=== PATIENT | female | born 1990 | race Caucasian/White ===

== ENCOUNTER 2017-08-31 21:50 | Outpatient (CLI) | payer OTHER ==
--- NOTE | 2017-08-31 23:18 | Ultrasound Preliminary Report ---
Exam: US ABDOMEN LIMITED IMPRESSION: No abnormalities are seen. See above. [facility] SITE ID: [id number]
--- NOTE | 2017-08-31 23:18 | Ultrasound Report ---
EXAM: ABDOMEN ULTRASOUND LIMITED EXAM DATE: 08/31/2017 10:15 PM. CLINICAL HISTORY: Left UPPER QUADRANT PAIN. COMPARISON: None. TECHNIQUE: Real-time scanning was performed with static images obtained. FINDINGS: The spleen measures 9.2 x 3.8 x 8.3 cm, within normal limits. No hydronephrosis seen in the left kidney. The left kidney measures 10.4 cm in length. No fluid collection or mass seen in the lef t upper quadrant abdominal wall in the area of pain. Pancreatic duct is seen measuring 2.1 mm, within normal limits. IMPRESSION: No abnormalities are seen. See above. [facility] Referring Provider Line: [phone] SITE ID: [id number]
== END 2017-08-31 21:51 | disposition home or self-care (01) ==
LOC: DI 21:50
PROVIDERS: ATTEND Specialist
DX: R10.12 Left upper quadrant pain (principal)
CPT/HCPCS: 76705

== ENCOUNTER 2017-11-15 16:08 | Emergency (ER) | payer OTHER ==
--- NOTE | 2017-11-15 18:07 | ED Physician Documentation ---
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 No injury.) Timing - duration: Hours (2) Timing - details: Abrupt onset, Still present Associated symptoms: Other (some mild headache). No: Shortness of air, Diaphoresis, Feeling faint / dizzy Similar symptoms before: Has not had sx before Recently seen: Not recently seen Review of Systems Constitutional: denies: Fever, Chills Nose: denies: Rhinorrhea / runny nose, Congestion Throat: denies: Sore throat Cardiac: denies: Palpitations, Pedal edema, Calf pain Respiratory: reports: Cough (mild). denies: Dyspnea GI: denies: Abdominal Pain, Nausea, Vomiting, Diarrhea Musculoskeletal: denies: Neck pain, Back pain Neurologic: reports: Generalized weakness, Headache (mild, since chest pain started). 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 : None HEENT: None Psych: None Musculoskeletal: None Derm: None - Past Surgical History Past Surgical History: No - Present Medications Home Medications: Ambulatory Orders Medication Instructions Recorded Confirmed Naproxen 375 mg PO BID #20 tablet 11/15/17 - Allergies Allergies/Adverse Reactions: Allergies Allergy/AdvReac Type Severity Reaction Status Date / Time No Known Drug Allergies Allergy Verified 11/15/17 16:19 - Social History Does the pt smoke?: No Smoking Status: Never smoker Does the pt drink ETOH?: Yes Does the pt have substance abuse?: No - Family History Family history: denies: CAD, Aortic aneursym, Aortic dissection - Immunizations Immunizations are current?: Yes - POLST Patient has POLST: No PD ED PE NORMAL - Vitals Vital signs reviewed: Yes - General General: Alert and oriented X 3, Well developed/nourished, Other (somewhat uncomfortable with movement of torso. Somewhat sad and tearful, anxious.) - HEENT HEENT: Pharynx benign - Neck Neck: Supple, no meningeal sign, No adenopathy, No bruit - Cardiac Cardiac: RRR, No murmur - Respiratory Respiratory: Clear bilaterally, Other (mild tenderness left anterior chestwall. No redness nor rash. Does not fully reporduce the pain though. ) - Abdomen Abdomen: Soft, Non tender - Derm Derm: Normal color, Warm and dry, No rash - Extremities Extremities: No tenderness to palpate, Normal ROM s pain, No edema, No calf tenderness / cord - Neuro Neuro: Alert and oriented X 3, No motor deficit, Normal speech Results - Vitals Vitals: Oxygen O2 Source Room air - EKG (time done) 16:40 Rate: Rate (enter#) (88) Rhythm: NSR [place]: Normal Intervals: Normal [place] QRS: Normal Ischemia: Normal ST segments. No: ST elevation c/w ischemia, ST depression Compare to prior EKG: Old EKG unavailable - Rads (name of study) chest xray Radiology: Prelim report reviewed (normal) PD MEDICAL DECISION MAKING - Sepsis Event Vital Signs: Oxygen O2 Source Room air Departure - Departure Disposition: Home, Self Care Clinical Impression: Chest pain Qualifiers: Chest pain type: other chest pain Qualified Code(s): R07.89 - Other chest pain Condition: Stable Record reviewed to determine appropriate education?: Yes Instructions: ED Chest Pain Costochondritis Follow-Up: [facility] [Provider Group] Prescriptions: Naproxen 375 mg PO BID #20 tablet Comments: Your chest x-ray and EKG appear normal. Your vital signs are good. Your exam does not suggest any more serious condition. It seems like muscular skeletal chest pain. I would suggest naproxen or ibuprofen 2-3 times a day and add Tylenol if needed. Follow-up with your primary care in the next few days if not improved. Return sooner if other symptoms develop or if the pain worsens. Discharge Date/Time: 11/15/17 19:44
[2017-11-15] MEDS ORDERED: IBUPROFEN 600 MG TABLET PO STA (18:38)
[2017-11-15] MEDS ORDERED: ACETAMINOPHEN 325 MG TABLET PO STA (18:38)
--- NOTE | 2017-11-15 19:19 | XRAY Report ---
Procedure Date: 11/15/2017 Accession Number: [id number] / [id number] Procedure: XR - Chest 2 View X-Ray CPT Code: 65376 FULL RESULT: EXAM: CHEST RADIOGRAPHY EXAM DATE: 11/15/2017 07:02 PM. CLINICAL HISTORY: Left-sided chest pain for 6 hours. COMPARISON: None. TECHNIQUE: 2 views. FINDINGS: Lungs/Pleura: No focal opacities evident. No pleural effusion. No pneumothorax. Normal volumes. Mediastinum: Heart and mediastinal contours are unremarkable. Other: None. IMPRESSION: Normal 2-view chest radiography. [facility]
[2017-11-15 19:45] VITALS: BP 133/75
== END 2017-11-15 19:44 | disposition home or self-care (01) ==
LOC: ED 16:08
DX: R07.89 Other chest pain (principal)
CPT/HCPCS: 71046; 93005; 99283; A9270

== ENCOUNTER 2019-03-08 17:54 | Emergency (ER) | payer OTHER ==
--- NOTE | 2019-03-08 18:53 | ED Physician Documentation ---
PD HPI UPPER EXT INJURY - Stated complaint Stated Complaint: R HAND LAC - Chief complaint Chief Complaint: Wound - History obtained from History obtained from: Patient - History of Present Illness Location: Right, Hand, Other (also left forearm) Type of injury: Fall (walking dog and got pulled, fell forward to hands and knees, with abrasion left forearm, and lac of right palm. CLeansed it at home. Here for consideration of best wound care/closure.) Where injury occurred: Home Timing - onset: How many hours ago (1), Today Timing - details: Abrupt onset Worsened by: Palpating. 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 HEENT: None Psych: None Musculoskeletal: None Derm: None - Past Surgical History Past Surgical History: No - Present Medications Home Medications: Ambulatory Orders Medication Instructions Recorded Confirmed Naproxen 375 mg PO BID #20 tablet 11/15/17 - Allergies Allergies/Adverse Reactions: Allergies Allergy/AdvReac Type Severity Reaction Status Date / Time No Known Drug Allergies Allergy Verified 03/08/19 18:17 - Social History Does the pt smoke?: No Smoking Status: Never smoker Does the pt drink ETOH?: Yes Does the pt have substance abuse?: No - Immunizations Immunizations are current?: Yes - POLST Patient has POLST: No PD ED PE NORMAL - Vitals Vital signs reviewed: Yes - General General: Alert and oriented X 3, No acute distress, Well developed/nourished - Derm Derm: Normal color, Warm and dry - Extremities Extremities: Other (left forearm with volar abrasion. no FB. right palm with abrasion and small 1/2 cm partial thickness lac without FB and edges are close. Can heal without sutures. ) - Neuro Neuro: No motor deficit, No sensory deficit Results - Vitals Vitals: Oxygen O2 Source Room air PD MEDICAL DECISION MAKING - ED course Complexity details: considered differential (proximal palm lac without FB. It is small lac, with abrasion too. Can be held with steri-strips.), d/w patient Departure - Departure Disposition: 01 Home, Self Care Clinical Impression: Fall from slip, trip, or stumble Qualifiers: Encounter type: initial encounter Qualified Code(s): W01.0XXA - Fall on same level from slipping, tripping and stumbling without subsequent striking against object, initial encounter Hand laceration Qualifiers: Encounter type: initial encounter Foreign body presence: without foreign body Laterality: right Qualified Code(s): S61.411A - Laceration without foreign body of right hand, initial encounter Condition: Stable Record reviewed to determine appropriate education?: Yes Instructions: ED Laceration Ext Sutr Stap Tape Follow-Up: Jelani King DO [Primary Care Provider] - Comments: Keep the area clean and dry. Allow the Steri-Strips to fall off on their own over 6 several days to week. At that point then start cleaning with soap and water and use ointment to the area until fully healed. Recheck if signs of infection. Use the ointment and dressings to the other abrasions you have starting right off. Tylenol or ibuprofen if needed for pains. Forms: Activity restrictions Discharge Date/Time: 03/08/19 19:31
[2019-03-08] MEDS ORDERED: ACETAMINOPHEN 325 MG TABLET PO STA (19:13)
[2019-03-08 19:30] VITALS: BP 137/82
== END 2019-03-08 19:31 | disposition home or self-care (01) ==
LOC: ED 17:54
DX: S61.411A Laceration without foreign body of right hand, initial encounter (principal); S50.812A Abrasion of left forearm, initial encounter; W01.0XXA Fall on same level from slipping, tripping and stumbling without subsequent striking against object, initial encounter; Y93.K1 Activity, walking an animal; Y92.414 Local residential or business street as the place of occurrence of the external cause
CPT/HCPCS: 99282; A9270